=== PATIENT | male | born 1995 | race Caucasian/White ===

== ENCOUNTER 2017-04-21 14:17 | Emergency (ER) | payer BC, OTHER ==
[2017-04-21] MEDS ORDERED: Sodium Chloride 0.9% 10 ML Syringe FLUSH PRN (15:04)
[2017-04-21] MEDS ORDERED: Ondansetron 4 MG/2 ML SDV IVPUSH ONE (15:05)
--- NOTE | 2017-04-21 15:07 | EDM.PDOC ---
ED HPI GENERAL MEDICAL PROBLEM - General Chief Complaint: General Stated Complaint: UPSET STOMACH/DIAHERRA/BLOODY STOOL Time Seen by Provider: 04/21/17 15:00 Source of Information: Reports: Patient, Family, RN Notes Reviewed History Limitations: Reports: No Limitations - History of Present Illness INITIAL COMMENTS - FREE TEXT/NARRATIVE: 21-year-old gentleman presents to the emergency department today complaint of nausea vomiting and diarrhea he has had some blood in the stool this is been developing over the last 24 hours there is a possible food ingestion that may have triggered this he is the only one to have this symptomology in his family, no fever Abdominal Pain Score (Numeric/FACES): 9 - Related Data Allergies Allergy/AdvReac Type Severity Reaction Status Date / Time amoxicillin Allergy Rash Verified 04/21/17 14:43 Home Meds: Home Meds NK [No Known Home Meds] 04/21/17 [History] Past Medical History - Past Health History Medical/Surgical History: Denies Medical/Surgical History Social & Family History - Caffeine Use Caffeine Use: Reports: Coffee - Recreational Drug Use Recreational Drug Use: No ED ROS GENERAL - Review of Systems Review Of Systems: See Below Constitutional: Denies: Fever, Chills HEENT: Reports: No Symptoms Respiratory: Reports: No Symptoms Cardiovascular: Reports: No Symptoms GI/Abdominal: Reports: Abdominal Pain, Bloody Stool, Diarrhea, Nausea, Vomiting : Reports: No Symptoms Musculoskeletal: Reports: No Symptoms Skin: Reports: No Symptoms Neurological: Reports: No Symptoms ED EXAM, GENERAL - Physical Exam Exam: See Below Exam Limited By: No Limitations General Appearance: Alert, WD/WN, No Apparent Distress Neck: Normal Inspection, Supple, Non-Tender, Full Range of Motion Respiratory/Chest: No Respiratory Distress, Lungs Clear, Normal Breath Sounds, No Accessory Muscle Use Cardiovascular: Regular Rate, Rhythm, No Murmur GI/Abdominal: Soft, Non-Tender Course - Vital Signs Last Recorded V/S: Last Vital Signs Temp 96.7 F 04/21/17 14:46 Pulse 99 04/21/17 14:46 Resp 16 04/21/17 14:46 BP 116/66 04/21/17 14:46 Pulse Ox 98 04/21/17 14:46 Orthostatic Blood Pressure [ 107/64 Standing] Orthostatic Blood Pressure [ 104/69 Sitting] Orthostatic Blood Pressure [ 111/64 Supine] - Orders/Labs/Meds Orders: Active Orders 24 hr Category Date Time Status Peripheral IV Care [RC] . DIRECTED Care 04/21/17 15:04 Active Lactated Ringers [Ringers, Lactated] 1,000 ml Med 04/21/17 15:15 Active IV ASDIRECTED Sodium Chloride 0.9% [Saline Flush] Med 04/21/17 15:04 Active 10 ml FLUSH ASDIRECTED PRN Peripheral IV Insertion Adult [OM.PC] Urgent Oth 04/21/17 15:04 Ordered Medication Orders Lactated Ringer's (Ringers, Lactated) 1,000 mls @ 999 mls/hr IV ASDIRECTED ANGE Last Admin: 04/21/17 15:18 Dose: 999 mls/hr Sodium Chloride (Saline Flush) 10 ml FLUSH ASDIRECTED PRN PRN Reason: Keep Vein Open Labs: Laboratory Tests 04/21/17 04/21/17 04/21/17 Range/Units 15:16 15:16 16:31 WBC 11.8 H (4.5-11.0) K/uL RBC 5.77 (4.30-5.90) M/uL Hgb 17.2 H (12.0-15.0) g/dL Hct 48.3 (40.0-54.0) % MCV 84 (80-98) fL MCH 30 (27-31) pg MCHC 36 (32-36) % Plt Count 203 (150-400) K/uL Neut % (Auto) 90 H (36-66) % Lymph % (Auto) 6 L (24-44) % [place] % (Auto) 4 (2-6) % Eos % (Auto) 0 L (2-4) % Baso % (Auto) 0 (0-1) % Sodium 140 (140-148) mmol/L Potassium 4.1 (3.6-5.2) mmol/L Chloride 103 (100-108) mmol/L Carbon Dioxide 27 (21-32) mmol/L Anion Gap 10.2 (5.0-14.0) mmol/L BUN 16 (7-18) mg/dL Creatinine 0.9 (0.8-1.3) mg/dL Est Cr Clr Drug Dosing 149.50 mL/min Estimated GFR (MDRD) > 60 (>60) Glucose 100 (74-106) mg/dL Calcium 8.6 (8.5-10.1) mg/dL Total Bilirubin 1.3 H (0.2-1.0) mg/dL AST 15 (15-37) U/L ALT 29 (12-78) U/L Alkaline Phosphatase 89 (46-116) U/L Total Protein 7.7 (6.4-8.2) g/dL Albumin 4.6 (3.4-5.0) g/dL Globulin 3.1 (2.3-3.5) g/dL Albumin/Globulin Ratio 1.5 (1.2-2.2) Urine Color [place] Urine Appearance Cloudy Urine pH 5.0 (4.5-8.0) Ur Specific [place] 1.025 (1.008-1.030) Urine Protein Negative (NEGATIVE) mg/dL Urine Glucose (UA) Normal (NEGATIVE) mg/dL Urine Ketones 50 H (NEGATIVE) mg/dL Urine Occult Blood Negative (NEGATIVE) Urine Nitrite Negative (NEGAITVE) Urine Bilirubin Negative (NEGATIVE) Urine Urobilinogen Normal (NORMAL) mg/dL Ur Leukocyte Esterase Negative (NEGATIVE) Urine RBC 0-5 (0-5) Urine WBC 5-10 H (0-5) Ur Epithelial Cells Few Amorphous Sediment Few Urine Bacteria Few Urine Mucus Numerous Meds: Medications Generic Name Dose Route Start Last Admin Trade Name Freq PRN Reason Stop Dose Admin Lactated Ringer's 1,000 mls @ 999 mls/hr 04/21/17 15:15 04/21/17 15:18 Ringers, Lactated IV 999 mls/hr ASDIRECTED ANGE Administration Sodium Chloride 10 ml 04/21/17 15:04 Saline Flush FLUSH ASDIRECTED PRN Keep Vein Open Discontinued Medications Generic Name Dose Route Start Last Admin Trade Name Freq PRN Reason Stop Dose Admin Hyoscyamine 0.125 mg 04/21/17 15:43 04/21/17 15:49 Hyomax-Sl SL 04/21/17 15:44 0.125 mg ONETIME ONE Administration Ketorolac Tromethamine 30 mg 04/21/17 15:42 04/21/17 15:49 Toradol IVPUSH 04/21/17 15:43 30 mg ONETIME ONE Administration Ondansetron HCl 4 mg 04/21/17 15:05 04/21/17 15:18 Zofran IVPUSH 04/21/17 15:06 4 mg ONETIME ONE Administration Departure - Departure Time of Disposition: 16:51 Disposition: Home, Self-Care 01 Condition: Good Clinical Impression: Gastroenteritis - Discharge Information Referrals: Mauricio Jordan MD [Primary Care Provider] - Forms: ED Department Discharge Additional Instructions: Use Zofran as needed for nausea and vomiting symptoms, Please followup with your primary care provider in 3-5 days if not better, please call return to the emergency department with worsening of symptoms. - My Orders Last 24 Hours: My Active Orders 04/21/17 15:04 Peripheral IV Care [RC] . DIRECTED Sodium Chloride 0.9% [Saline Flush] 10 ml FLUSH ASDIRECTED PRN Peripheral IV Insertion Adult [OM.PC] Urgent 04/21/17 15:15 Lactated Ringers [Ringers, Lactated] 1,000 ml IV ASDIRECTED - Assessment/Plan Last 24 Hours: My Active Orders 04/21/17 15:04 Peripheral IV Care [RC] . DIRECTED Sodium Chloride 0.9% [Saline Flush] 10 ml FLUSH ASDIRECTED PRN Peripheral IV Insertion Adult [OM.PC] Urgent 04/21/17 15:15 Lactated Ringers [Ringers, Lactated] 1,000 ml IV ASDIRECTED Plan: Assessment Acuity = acute Site and laterality = gastroenteritis Etiology = probable infectious Manifestations = none Location of injury = Home Lab values = WBC elevated 11.8 consistent leukocytosis, total bilirubin elevated 1.3 consistent hyperbilirubinemia urinalysis reveals 15 ketones consistent ketonuria specific gravity 1.025 consistent with dehydration and WBCs 5-10 consistent with pyuria Plan He had good improvement combination Toradol, Anaspaz and 1 L of fluids, he'll be discharged home with Zofran 4 mg ODT 1 tab by mouth 3 times a day when necessary to be used as needed follow-up primary care 3-5 days if no improvement Patient was in agreement with the plan all questions were answered, they were instructed to return to the emergency department or call for worsening symptoms. This note was dictated using [employer] voice recognition software please call with any questions.
[2017-04-21] MEDS ORDERED: Lactated Ringers 1,000 ML IV SCH (15:15)
[2017-04-21] MEDS ORDERED: Ketorolac 30 MG/ML SDV IVPUSH ONE (15:42)
[2017-04-21] MEDS ORDERED: Hyoscyamine 0.125 MG Tab.SL SL ONE (15:43)
== END 2017-04-21 17:00 | disposition home or self-care (01) ==
LOC: JP.ED 14:17
DX: K52.9 Noninfective gastroenteritis and colitis, unspecified (principal); Z88.1 Allergy status to other antibiotic agents
CPT/HCPCS: 36415; 80053; 81001; 85025; 96361; 96374; 96375; 99284; A9270; J1885; J2405; J7120

== ENCOUNTER 2020-02-27 03:14 | Emergency (ER) | payer OTHER, BC ==
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
== END 2020-02-27 03:56 | disposition home or self-care (01) ==
LOC: JP.ED 03:14
DX: S09.92XA Unspecified injury of nose, initial encounter (principal); Z88.1 Allergy status to other antibiotic agents; Y04.0XXA Assault by unarmed brawl or fight, initial encounter; Y99.0 Civilian activity done for income or pay
CPT/HCPCS: 70160; 99284

== ENCOUNTER 2021-06-06 18:43 | Emergency (ER) | payer OTHER, BC | END 2021-06-06 19:35 | disposition home or self-care (01) | LOC: JP.ED 18:43 | DX: S09.90XA Unspecified injury of head, initial encounter (principal); V49.40XA Driver injured in collision with unspecified motor vehicles in traffic accident, initial encounter; Y92.89 Other specified places as the place of occurrence of the external cause; Y99.0 Civilian activity done for income or pay | CPT/HCPCS: 99283 ==